=== PATIENT | female | born 1945 | race Caucasian/White ===

== ENCOUNTER 2020-07-25 14:54 | Outpatient (REF) | payer MEDICARE, SELFPAY | END 2020-07-25 14:55 | disposition home or self-care (01) | LOC: HO.LAB 14:54 | PROVIDERS: PCP Internal Medicine; Visit Provider Dermatology | DX: Z13.89 Encounter for screening for other disorder (principal) ==

== ENCOUNTER 2020-07-27 14:08 | Outpatient (REF) | payer MEDICARE, SELFPAY ==
[2020-07-27 14:53] LABS: MANUAL DIFF FLAG NO
[2020-07-27 15:00] LABS: Basophils Absolute Auto 0.1 X10*3/uL (0.0-0.2); Basophils Percent Auto 0.5 % (0-2); Eosinophils Absolute Auto 0.5 X10*3/uL (0.0-0.4); Eosinophils Percent Auto 4.1 % (0-4); Hematocrit 39.5 % (37-47); Hemoglobin 12.5 g/dl (12.0-16.0); Imm Gran Abs Auto 0.03 X10*3/uL (0.00-0.03); Imm Gran Pct Auto 0.3 % (0.0-0.4); Lymphocytes Absolute Auto 1.9 X10*3/uL (1.2-4.9); Lymphocytes Percent Auto 17.1 % (20-40); Mean Corpuscular HGB Conc 31.6 g/dl (31.0-35.0); Mean Corpuscular Hemoglobin 31.4 pg (27.0-33.0); Mean Corpuscular Volume 99.2 fL (80-98); Monocytes Percent Auto 8.9 % (2-11); Neutrophils Absolute Auto 7.6 X10*3/uL (2.0-8.3); Neutrophils Percent Auto 69.1 % (45-73); Platelet Count 200 X10*3/uL (160-400); Red Blood Count 3.98 X10*6/uL (4.20-5.50); Red Cell Distribution Width 13.9 % (11.0-16.0)
[2020-07-27 15:23] LABS: Alanine Aminotransferase 9 U/L (0-31); Albumin Level 4.2 g/dL (3.5-5.0); Alkaline Phosphatase 76 U/L (39-117); Anion Gap 15 (12-20); Aspartate Amino Transferase 14 U/L (5-31); Bilirubin Direct 0.2 mg/dL (0.0-0.5); Bilirubin Total 0.8 mg/dL (0.0-1.0); Blood Urea Nitrogen 20 mg/dL (9-16); Carbon Dioxide 23 mmol/L (22-29); Chloride 109 mmol/L (96-108); Estimated Glomerular Filt Rate 27; Glucose Random 159 mg/dL (60-115); Potassium 5.3 mmol/l (3.3-5.1); Sodium 142 mmol/L (135-145); Total Protein 7.7 g/dL (6.5-8.0)
== END 2020-07-27 14:09 | disposition home or self-care (01) ==
LOC: HO.LAB 14:08
PROVIDERS: PCP Internal Medicine; Visit Provider Dermatology
DX: L40.0 Psoriasis vulgaris (principal); Z79.899 Other long term (current) drug therapy; I40.0 Infective myocarditis
CPT/HCPCS: 36415; 80048; 80076; 85025; 86481

== ENCOUNTER 2021-01-08 14:27 | Outpatient (REF) | payer MEDICARE, SELFPAY ==
[2021-01-08 15:19] LABS: MANUAL DIFF FLAG NO
[2021-01-08 15:33] LABS: Basophils Percent Auto 0.5 % (0-2); Eosinophils Absolute Auto 0.5 X10*3/uL (0.0-0.4); Hemoglobin 12.9 g/dl (12.0-16.0); Imm Gran Abs Auto 0.06 X10*3/uL (0.00-0.03); Imm Gran Pct Auto 0.8 % (0.0-0.4); Lymphocytes Absolute Auto 1.2 X10*3/uL (1.2-4.9); Lymphocytes Percent Auto 16.5 % (20-40); Mean Corpuscular HGB Conc 32.3 g/dl (31.0-35.0); Mean Corpuscular Hemoglobin 32.3 pg (27.0-33.0); Mean Platelet Volume 9.9 fL (9.4-12.3); Monocytes Absolute Auto 0.6 X10*3/uL (0.1-1.2); Monocytes Percent Auto 8.3 % (2-11); Neutrophils Percent Auto 66.9 % (45-73); Platelet Count 191 X10*3/uL (160-400); Red Cell Distribution Width 14.6 % (11.0-16.0); White Blood Count 7.5 X10*3/uL (4.8-10.8)
[2021-01-08 15:53] LABS: Albumin Level 4.2 g/dL (3.5-5.0); Anion Gap 16 (12-20); Blood Urea Nitrogen 18 mg/dL (9-16); Calcium 9.3 mg/dL (8.4-10.2); Carbon Dioxide 19 mmol/L (22-29); Chloride 109 mmol/L (96-108); Estimated Glomerular Filt Rate 27; Magnesium 2.2 mg/dL (1.6-2.6); Phosphorus 3.8 mg/dL (2.7-4.5); Potassium 4.9 mmol/L (3.3-5.1); Sodium 139 mmol/L (135-145)
== END 2021-01-08 14:28 | disposition home or self-care (01) ==
LOC: HO.LAB 14:27
PROVIDERS: PCP Internal Medicine; Visit Provider Internal Medicine Hypertension Specialist
DX: I13.0 Hypertensive heart and chronic kidney disease with heart failure and stage 1 through stage 4 chronic kidney disease, or unspecified chronic kidney disease (principal); N18.30 Chronic kidney disease, stage 3 unspecified
CPT/HCPCS: 36415; 80051; 82040; 82310; 82565; 83735; 84100; 84520; 85025

== ENCOUNTER 2021-08-28 11:56 | Outpatient (REF) | payer MEDICARE, SELFPAY ==
[2021-08-28 12:18] LABS: MANUAL DIFF FLAG NO
[2021-08-28 13:21] LABS: Basophils Absolute Auto 0.1 X10*3/uL (0.0-0.2); Basophils Percent Auto 0.6 % (0-2); Eosinophils Absolute Auto 0.4 X10*3/uL (0.0-0.4); Eosinophils Percent Auto 4.9 % (0-4); Hematocrit 40.3 % (37.0-47.0); Hemoglobin 13.2 g/dl (12.0-16.0); Imm Gran Abs Auto 0.03 X10*3/uL (0.00-0.03); Imm Gran Pct Auto 0.4 % (0.0-0.4); Lymphocytes Absolute Auto 1.2 X10*3/uL (1.2-4.9); Lymphocytes Percent Auto 14.5 % (20-40); Mean Corpuscular HGB Conc 32.8 g/dl (31.0-35.0); Mean Corpuscular Volume 100.8 fL (80.0-98.0); Mean Platelet Volume 11.1 fL (9.4-12.3); Monocytes Absolute Auto 0.7 X10*3/uL (0.1-1.2); Monocytes Percent Auto 9.2 % (2-11); Neutrophils Absolute Auto 5.6 x10*3/uL (2.0-8.3); Neutrophils Percent Auto 70.4 % (45-73); Platelet Count 134 X10*3/uL (160-400); Red Cell Distribution Width 14.5 % (11.0-16.0); White Blood Count 7.9 X10*3/uL (4.8-10.8)
[2021-08-28 14:28] LABS: Alanine Aminotransferase 20 U/L (0-31); Albumin Level 3.9 g/dL (3.5-5.0); Alkaline Phosphatase 82 U/L (39-117); Anion Gap 16 (12-20); Aspartate Amino Transferase 29 U/L (5-31); Bilirubin Direct 0.3 mg/dL (0.0-0.5); Bilirubin Total 0.9 mg/dL (0.0-1.0); Blood Urea Nitrogen 14 mg/dL (9-16); Calcium 9.4 mg/dL (8.4-10.2); Carbon Dioxide 18 mmol/L (22-29); Chloride 109 mmol/L (96-108); Estimated Glomerular Filt Rate 31; Glucose Random 92 mg/dL (60-115); Potassium 4.2 mmol/L (3.3-5.1); Sodium 139 mmol/L (135-145); Total Protein 7.7 g/dL (6.5-8.0)
[2021-08-30 19:51] LABS: TS Negative Control Passed; TS Panel A 0; TS Panel B 0; TS Positive Control Passed; TSpotTB Negative (Negative)
== END 2021-08-28 11:57 | disposition home or self-care (01) ==
LOC: HO.LAB 11:56
PROVIDERS: PCP Internal Medicine; Visit Provider Dermatology
DX: L40.0 Psoriasis vulgaris (principal)
CPT/HCPCS: 36415; 80048; 80076; 85025; 86481

== ENCOUNTER 2021-11-08 10:07 | Outpatient (REF) | payer MEDICARE, SELFPAY ==
[2021-11-08 13:21] LABS: MANUAL DIFF FLAG NO
[2021-11-08 13:25] LABS: Basophils Percent Auto 0.4 % (0-2); Eosinophils Absolute Auto 0.4 X10*3/uL (0.0-0.4); Eosinophils Percent Auto 5.9 % (0-4); Hematocrit 41.1 % (37.0-47.0); Hemoglobin 13.4 g/dl (12.0-16.0); Imm Gran Abs Auto 0.02 X10*3/uL (0.00-0.03); Imm Gran Pct Auto 0.3 % (0.0-0.4); Lymphocytes Absolute Auto 1.4 X10*3/uL (1.2-4.9); Lymphocytes Percent Auto 19.6 % (20-40); Mean Corpuscular HGB Conc 32.6 g/dl (31.0-35.0); Mean Corpuscular Hemoglobin 33.1 pg (27.0-33.0); Mean Corpuscular Volume 101.5 fL (80.0-98.0); Mean Platelet Volume 10.2 fL (9.4-12.3); Monocytes Absolute Auto 0.7 X10*3/uL (0.1-1.2); Monocytes Percent Auto 10.1 % (2-11); Neutrophils Absolute Auto 4.6 x10*3/uL (2.0-8.3); Neutrophils Percent Auto 63.7 % (45-73); Platelet Count 164 X10*3/uL (160-400); Red Blood Count 4.05 X10*6/uL (4.20-5.50); Red Cell Distribution Width 13.5 % (11.0-16.0); White Blood Count 7.3 X10*3/uL (4.8-10.8)
[2021-11-08 14:00] LABS: Alanine Aminotransferase 15 U/L (0-31); Albumin Level 3.7 g/dL (3.5-5.0); Alkaline Phosphatase 68 U/L (39-117); Anion Gap 14 (12-20); Aspartate Amino Transferase 24 U/L (5-31); Bilirubin Total 0.6 mg/dL (0.0-1.0); Blood Urea Nitrogen 15 mg/dL (9-16); Calcium 9.4 mg/dL (8.4-10.2); Carbon Dioxide 23 mmol/L (22-29); Chloride 108 mmol/L (96-108); Cholesterol 204 mg/dL; Estimated Average Glucose 108 mg/dL; Estimated Glomerular Filt Rate 27; Glucose Fasting 131 mg/dL (60-99); HDL Cholesterol 95 mg/dL; Hemoglobin A1c % 5.4 %; Iron 102 mcg/dL (30-160); LDL Cholesterol Calculated 90 mg/dl; Percent Iron Saturation 40 % (15-50); Potassium 4.1 mmol/L (3.3-5.1); Sodium 141 mmol/L (135-145); Total Iron Binding Capacity 254 mcg/dL (228-428); Total Protein 7.7 g/dL (6.5-8.0); Triglycerides 97 mg/dL; Unsaturated Iron Binding 152 ug/dL
[2021-11-08 14:09] LABS: Erythrocyte Sedimentation Rate 25 MM/HR (0-20)
[2021-11-08 14:19] LABS: TSH reflex Free T4 1.68 uIU/mL (0.32-4.0); Vitamin D 25-OH Total 30.6 ng/mL (>30)
[2021-11-08 14:44] LABS: Folate 4.3 ng/mL (> or = 4.0); Vitamin B12 324 pg/mL (200-900)
== END 2021-11-08 10:08 | disposition home or self-care (01) ==
LOC: HO.10HDL 10:07
PROVIDERS: Visit Provider Internal Medicine
DX: E78.00 Pure hypercholesterolemia, unspecified (principal); E87.5 Hyperkalemia; D50.9 Iron deficiency anemia, unspecified; E55.9 Vitamin D deficiency, unspecified; L40.9 Psoriasis, unspecified; R29.898 Other symptoms and signs involving the musculoskeletal system; E11.22 Type 2 diabetes mellitus with diabetic chronic kidney disease; I12.9 Hypertensive chronic kidney disease with stage 1 through stage 4 chronic kidney disease, or unspecified chronic kidney disease; E78.5 Hyperlipidemia, unspecified; N18.4 Chronic kidney disease, stage 4 (severe)
CPT/HCPCS: 36415; 80053; 80061; 82306; 82550; 82607; 82746; 83036; 83540; 83735; 84443; 85025; 85652

== ENCOUNTER 2023-02-18 13:45 | Outpatient (REF) | payer MEDICARE, SELFPAY ==
[2023-02-18 14:16] LABS: MANUAL DIFF FLAG NO
[2023-02-18 15:11] LABS: Basophils Absolute Auto 0.1 X10*3/uL (0.0-0.2); Basophils Percent Auto 0.9 % (0-2); Eosinophils Absolute Auto 0.6 X10*3/uL (0.0-0.4); Eosinophils Percent Auto 7.4 % (0-4); Hematocrit 39.1 % (37.0-47.0); Hemoglobin 12.8 g/dl (12.0-16.0); Imm Gran Abs Auto 0.03 X10*3/uL (0.00-0.03); Imm Gran Pct Auto 0.4 % (0.0-0.4); Lymphocytes Absolute Auto 1.5 X10*3/uL (1.2-4.9); Lymphocytes Percent Auto 17.9 % (20-40); Mean Corpuscular HGB Conc 32.7 g/dl (31.0-35.0); Mean Corpuscular Hemoglobin 32.9 pg (27.0-33.0); Mean Corpuscular Volume 100.5 fL (80.0-98.0); Mean Platelet Volume 9.5 fL (9.4-12.3); Monocytes Absolute Auto 0.6 X10*3/uL (0.1-1.2); Monocytes Percent Auto 7.5 % (2-11); Neutrophils Absolute Auto 5.4 x10*3/uL (2.0-8.3); Neutrophils Percent Auto 65.9 % (45-73); Platelet Count 230 X10*3/uL (160-400); Red Blood Count 3.89 X10*6/uL (4.20-5.50); Red Cell Distribution Width 14.3 % (11.0-16.0); White Blood Count 8.2 X10*3/uL (4.8-10.8)
[2023-02-18 15:27] LABS: Estimated Average Glucose 100 mg/dL; Hemoglobin A1c % 5.1 %
[2023-02-18 15:46] LABS: Alanine Aminotransferase 9 U/L (0-31); Albumin Level 3.9 g/dL (3.5-5.0); Alkaline Phosphatase 85 U/L (39-117); Anion Gap 13 (12-20); Aspartate Amino Transferase 17 U/L (5-31); Bilirubin Total 0.9 mg/dL (0.0-1.0); Blood Urea Nitrogen 19 mg/dL (9-16); Calcium 9.4 mg/dL (8.4-10.2); Carbon Dioxide 18 mmol/L (22-29); Chloride 111 mmol/L (96-108); Cholesterol 201 mg/dL; Estimated Glomerular Filt Rate 29; Glucose Fasting 121 mg/dL (60-99); HDL Cholesterol 81 mg/dL; LDL Cholesterol Calculated 92 mg/dl; Potassium 5.2 mmol/L (3.3-5.1); Sodium 137 mmol/L (135-145); Total Protein 7.9 g/dL (6.5-8.0); Triglycerides 142 mg/dL
[2023-02-18 16:18] LABS: Folate 6.2 ng/mL (> or = 4.0); TSH reflex Free T4 2.02 uIU/mL (0.32-4.0); Vitamin B12 317 pg/mL (200-900); Vitamin D 25-OH Total 35.8 ng/mL (>30)
[2023-02-18 16:37] LABS: Appearance Urine Cloudy; Color Urine Yellow; Glucose Urine UA Negative (Negative); Leukocyte Esterase Urine Large (3+) (Negative); Nitrite Urine Negative (Negative); UMIC TRIGGER UACC YES; Urine Blood Negative (Negative); Urine Ketones Negative (Negative); Urine Protein 30 (1+) mg/dL (Neg-Trace)
[2023-02-18 16:46] LABS: Bacteria Urine Trace (None Seen); UACC Culture Trigger YES; WBC Urine >50 /HPF (0-5)
== END 2023-02-18 13:46 | disposition home or self-care (01) ==
LOC: HO.LAB 13:45
PROVIDERS: PCP Internal Medicine; Visit Provider Internal Medicine
DX: I12.9 Hypertensive chronic kidney disease with stage 1 through stage 4 chronic kidney disease, or unspecified chronic kidney disease (principal); E11.22 Type 2 diabetes mellitus with diabetic chronic kidney disease; N18.4 Chronic kidney disease, stage 4 (severe); E78.00 Pure hypercholesterolemia, unspecified; E55.9 Vitamin D deficiency, unspecified; E53.8 Deficiency of other specified B group vitamins; R82.90 Unspecified abnormal findings in urine
CPT/HCPCS: 36415; 80053; 80061; 81001; 82306; 82607; 82746; 83036; 83735; 84443; 85025; 87086; 87147

== ENCOUNTER 2023-04-08 15:01 | Outpatient (REF) | payer MEDICARE, SELFPAY ==
[2023-04-10 16:23] LABS: TS Negative Control Passed; TS Panel A 0; TS Panel B 0; TS Positive Control Passed; TSpotTB Negative (Negative)
== END 2023-04-08 15:02 | disposition home or self-care (01) ==
LOC: HO.LAB 15:01
PROVIDERS: PCP Internal Medicine; Visit Provider Dermatology
DX: L40.0 Psoriasis vulgaris (principal); D69.2 Other nonthrombocytopenic purpura; L81.4 Other melanin hyperpigmentation; Z79.899 Other long term (current) drug therapy
CPT/HCPCS: 36415; 86481

== ENCOUNTER 2023-05-28 10:25 | Outpatient (REF) | payer MEDICARE, SELFPAY ==
--- NOTE | 2023-05-28 10:30 | EMG_ITS ---
Please see scanned EMG / Nerve Conduction Report. MTDD
== END 2023-05-28 10:26 | disposition home or self-care (01) ==
LOC: HO.NEURO 10:25
PROVIDERS: PCP Internal Medicine; Visit Provider Internal Medicine
DX: R26.81 Unsteadiness on feet (principal); R29.898 Other symptoms and signs involving the musculoskeletal system
CPT/HCPCS: 95885; 95911

== ENCOUNTER 2023-08-12 15:36 | Outpatient (AMB) | payer MEDICARE, SELFPAY ==
[2023-08-12 15:38] VITALS: BP 112/80; PULSE 81; O2SAT 99; BMI 19.1
--- NOTE | 2023-08-12 15:38 | A.OFFPC_ITS ---
Vital Signs 08/12/23 15:38 Height 5 ft 1 in Weight 101 lb 4 oz BMI 19.1 BP 112/80 Blood Pressure Location Lt brachial Position Sitting Pulse 81 Pulse Source Pulse Oximeter Pulse Oximetry (%) 99 Oxygen Delivery Method Room Air Intake Visit Reasons: HTN, DM, CKD, neuropathy Data Reviewer Required: No Accompanied by: Self / Same As Patient Allergies Sulfa (Sulfonamide Antibiotics) Allergy (Unknown, Verified 07/14/24 04:22) Unknown Medication List - Last Reconciled 08/12/23 by Abdoulaye Cunha MD amlodipine 5 mg PO DAILY ergocalciferol (vitamin D2) 1,250 mcg PO QWEEK 90 days glipizide ER 2.5 mg PO DAILY Tobacco use date assessed: 08/12/23 Fall risk assessment: 1 Fall in past year Last assessed Fall Risk: 08/12/23 Dental Screening Dental Screen Date: 08/12/23 Did you have a dental visit in the last 12 months?: No Did you have a dental problem in the last 6 months where you did not have access to dental care?: No Was dental information given to patient?: No HPI HTN, DM, CKD, neuropathy HPI Details Patient comes in today for her follow up visit States that she still has increased weakness in both of her legs PFSH Medical History Bilateral leg weakness Hyperkalemia Psoriasis Chronic kidney disease, stage 4 (severe) Anemia Pure hypercholesterolemia Benign essential hypertension Diabetes mellitus Vitamin D deficiency Surgical History S/P peripheral artery angioplasty with stent placement (~11/21/17) Social History Housing: House Unable to assess alcohol history related to: Unable to respond Alcohol intake: former Patient Tobacco Use Status: Former Tobacco user Smoked in Last 30 Days: No Second Hand Smoke Exposure: Yes Use of substances other than those prescribed or required for medical reasons: Unable to respond Advance Directives: No service: No Current occupational status: retired and disabled Cognitive needs: No Hearing needs: No Vision needs: No Questionnaire PHQ-9 Over the last 2 weeks, how often have you been bothered by any of the following problems? 1. Little interest or pleasure in doing things: not at all 2. Feeling down, depressed, or hopeless: not at all 3. Trouble falling or staying asleep, or sleeping too much: not at all 4. Feeling tired or having little energy: several days 5. Poor appetite or overeating: not at all 6. Feeling bad about yourself - or that you are a failure or have let yourself or your family down: not at all 7. Trouble concentrating on things, such as reading the newspaper or watching television: not at all 8. Moving or speaking so slowly that other people could have noticed. Or the opposite - being so fidgety or restless that you have been moving around a lot more than usual: not at all 9. Thoughts that you would be better off or of hurting yourself in some way: not at all Total score: 1 Depression Screening Interpretation: Negative Depression Screening Done: Yes 27437 - PHQ-9 Billing: Yes Source: Developed by Drs. Vaibhav Quick, Kristy Sidhu, Jt Walters and colleagues, with an educational mera from [employer]. Thrive Questionnaire Date Thrive assessed: 08/12/23 I am a: Patient What is your living situation today?: I have a steady place to live Within the past 12 months, did the food you bought not last and you didn't have the money to get more?: Never true Within the past 12 months, did you worry whether your food would run out before you got money to buy more?: Never true Do you have trouble paying for medicines?: No Do you have trouble getting transportation to medical appointments?: No Do you have trouble paying your heating and electricity bill?: No Do you have trouble taking care of your child, family member or friend?: No Do you have trouble with day-to-day activities such as bathing, preparing meals, shopping, managing finances, etc.?: No Are you currently unemployed and looking for a job?: No Are you interested in more education?: No Please select the resources that you would like help with: None Currently or been in a relationship where the following occur: no concerns reported AUDIT C Alcohol Use Questionnaire (AUDIT-C) 1. How often do you have a drink containing alcohol?: Never 3. How often do you have six or more drinks on one occasion?: Never Total Score: 0 Score Reviewed/Action Taken: Yes MARC-7 AMB Questionnaire MARC-7 Date MARC - 7 assessed: 08/12/23 Feeling nervous, anxious, or on edge: 0 = Not at all Not being able to stop or control worryin = Not at all Worrying too much about different things: 0 = Not at all Trouble relaxin = Not at all Being so restless that it is hard to sit still: 0 = Not at all Becoming easily annoyed or irritable: 0 = Not at all Feeling afraid as if something awful might happen: 0 = Not at all Total MARC-7 score (0-4 normal; 5-9 mild; 10-14 moderate; 15-21 severe): 0 Source: Developed by Drs. Vaibhav Quick, Kristy Sidhu, Jt Walters and colleagues, with an educational mera from [employer]. Physical exam (Primary Care) Vital Signs: Last Vital Signs Pulse 81 08/12/23 15:38 BP 112/80 08/12/23 15:38 Pulse Ox 99 08/12/23 15:38 Oxygen Delivery Method Room Air 08/12/23 15:38 BMI result Body Mass Index 19.1 Tobacco/Smoking Status: Tobacco use Status Tobacco use date assessed 08/12/23 08/12/23 15:40 Patient Tobacco Use Status Former Tobacco user 08/12/23 15:40 PHQ-9: PHQ-9 Score PHQ-9: Total score 1 08/13/23 09:08 Depression Screening Interpretation: Negative Thrive Assessment: Date of Thrive Assessment Date Thrive assessed 08/12/23 08/12/23 15:40 Currently or been in a relationship where the following occur: no concerns reported Coding Level of Care Code Admin Sign Off/No Billing Diagnoses Bilateral leg weakness R29.898 Chronic kidney disease, stage 4 (severe) N18.4 Weakness of both lower extremities R29.898 Laterality: bilateral Type 2 diabetes mellitus with stage 4 chronic kidney disease, without long-term current use of insulin E11.22; N18.4 Chronic kidney disease stage: stage 4 (severe) Diabetes mellitus complication detail: with chronic kidney disease Diabetes mellitus complication status: with kidney complications Diabetes mellitus penitentiary insulin use: without penitentiary use Diabetes mellitus type: type 2 Benign essential hypertension I10 Pure hypercholesterolemia E78.00 Anemia, unspecified type D64.9 Anemia type: unspecified type Vitamin D deficiency E55.9 Psoriasis L40.9
== END 2023-08-12 16:11 | disposition home or self-care (01) ==
PROVIDERS: Visit Provider Internal Medicine
DX: E11.22 Type 2 diabetes mellitus with diabetic chronic kidney disease (principal); N18.4 Chronic kidney disease, stage 4 (severe); I12.9 Hypertensive chronic kidney disease with stage 1 through stage 4 chronic kidney disease, or unspecified chronic kidney disease; R29.898 Other symptoms and signs involving the musculoskeletal system; E78.00 Pure hypercholesterolemia, unspecified; D64.9 Anemia, unspecified; E55.9 Vitamin D deficiency, unspecified; L40.9 Psoriasis, unspecified
CPT/HCPCS: 99499

== ENCOUNTER 2023-08-29 15:26 | Outpatient (AMB) | payer MEDICARE, SELFPAY ==
--- NOTE | 2023-08-29 15:27 | HO.NEPHOV ---
HPI HPI Comments History of Present Illness Details I had the privilege to seeing Birgit in consultation for her chronic kidney disease. She was accompanied by her daughter. She has diabetes and hypertension. She denies any coronary artery disease, nephrolithiasis, congestive heart failure, carotid stenosis, CVA, CHF, PAD or JESSICA. She has no new skin rashes, photosensitivity, hematuria, bone pain, orthostatic symptoms. She does not take excessive nonsteroidal anti-inflammatory medications. She has no nausea, vomiting, diarrhea or pedal edema. She has not had blood work for some time. No and no new active complaints at the time of this office visit. [facility] Medical History (Updated 08/29/23 @ 16:12 by Hank Awan MD) Bilateral leg weakness Hyperkalemia Psoriasis Chronic kidney disease, stage 4 (severe) Anemia Pure hypercholesterolemia Benign essential hypertension Diabetes mellitus Vitamin D deficiency Surgical History S/P peripheral artery angioplasty with stent placement (~11/21/17) Social History Housing: House Alcohol intake: former Patient Tobacco Use Status: Former Tobacco user Second Hand Smoke Exposure: Yes service: No Current occupational status: retired and disabled Cognitive needs: No Hearing needs: No Vision needs: No Vital Signs 08/29/23 15:28 Height 5 ft 1 in Weight 104 lb 4 oz BMI 19.7 BP 100/70 Blood Pressure Location Lt brachial Position Sitting Pulse 66 Pulse Source Pulse Oximeter Physical Exam Vital Signs: Last Vital Signs Pulse 66 08/29/23 15:28 BP 100/70 08/29/23 15:28 BMI result Body Mass Index 19.7 Const General: comfortable and no acute distress Orientation/consciousness: patient oriented x3 HEENT Head: Yes normocephalic Mouth: Normal oral and palatal mucosa present Eyes EOM: EOMs intact bilaterally Neck Neck: Yes supple Resp Auscultation: clear to auscultation bilaterally Cardio Jugular venous distension: no JVD Rate: regular rate GI Palpation (GI): Soft to palpation Auscultation: normal bowel sounds General: Yes no CVA tenderness Back/Spine/Pelvis Back: no CVA tenderness Skin General skin exam: no rashes or lesions noted Neuro General: patient oriented x3 and moves all extremities Extrem General: Yes no pedal edema Assessment & Plan Assessment & Plan (1) CKD (chronic kidney disease) stage 3, GFR 30-59 ml/min: Code(s): N18.30 - Chronic kidney disease, stage 3 unspecified Qualifiers: Chronic kidney disease stage 3 subtype: stage 3b (GFR 30-44) Qualified Code(s): N18.32 - Chronic kidney disease, stage 3b (2) Benign essential hypertension: Code(s): I10 - Essential (primary) hypertension Plan Birgit has had chronic kidney disease likely from vascular disease. She has diabetes and hypertension. She is not on any JULIA inhibitor or ARB. Her blood pressure is at goal. She does not take any excessive nonsteroidal anti-inflammatory medications. She maintains good hydration. I have ordered imaging studies along with blood work and urine studies. I did not make any medication changes today. Further management has been evolving data. She will be a candidate for [facility]. All questions answered. Follow-up given. Orders: Orders Complete Blood Count Auto Diff 08/29/23 N18.30 - Chronic kidney disease, stage 3 unspecified Blood Urea Nitrogen 08/29/23 N18.30 - Chronic kidney disease, stage 3 unspecified Vitamin D 25-OH Total 08/29/23 N18.30 - Chronic kidney disease, stage 3 unspecified Phosphorus 08/29/23 N18.30 - Chronic kidney disease, stage 3 unspecified Electrolytes 08/29/23 N18.30 - Chronic kidney disease, stage 3 unspecified Creatinine 08/29/23 N18.30 - Chronic kidney disease, stage 3 unspecified Calcium 08/29/23 N18.30 - Chronic kidney disease, stage 3 unspecified Parathyroid Hormone Intact 08/29/23 N18.30 - Chronic kidney disease, stage 3 unspecified Immunofixation Pnl, Serum 08/29/23 N18.30 - Chronic kidney disease, stage 3 unspecified US renal BI 08/29/23 N18.30 - Chronic kidney disease, stage 3 unspecified Protein Creatinine Ratio, Ur 08/29/23 N18.30 - Chronic kidney disease, stage 3 unspecified UA and rflx microscopic 08/29/23 N18.30 - Chronic kidney disease, stage 3 unspecified Coding Level of Care Code New Pt Level 4 (54743) Diagnoses Stage 3b chronic kidney disease N18.32 Chronic kidney disease stage 3 subtype: stage 3b (GFR 30-44) Benign essential hypertension I10 Results Reviewed Nephrology Results: Hgb 12.8 g/dl (12.0-16.0) 02/18/23 WBC 8.2 X10*3/uL (4.8-10.8) 02/18/23 Plt Count 230 X10*3/uL (160-400) 02/18/23 Sodium 137 mmol/L (135-145) 02/18/23 Potassium 5.2 mmol/L (3.3-5.1) H 02/18/23 Chloride 111 mmol/L (96-108) H 02/18/23 Carbon Dioxide 18 mmol/L (22-29) L 02/18/23 BUN 19 mg/dL (9-16) H 02/18/23 Creatinine 1.69 mg/dL (0.5-1.4) H 02/18/23 Calcium 9.4 mg/dL (8.4-10.2) 02/18/23 Urine Protein 30 (1+) mg/dL (Neg-Trace) H 02/18/23
[2023-08-29 15:28] VITALS: BP 100/70; PULSE 66; BMI 19.7
== END 2023-08-29 16:15 | disposition home or self-care (01) ==
LOC: HO.HKA 15:26
PROVIDERS: PCP Internal Medicine; Visit Provider Internal Medicine Nephrology
DX: N18.32 Chronic kidney disease, stage 3b (principal); I10 Essential (primary) hypertension
CPT/HCPCS: 99204

== ENCOUNTER → 2023-08-29 15:26 | Outpatient (BNVA) | payer MEDICARE, SELFPAY | PROVIDERS: PCP Internal Medicine; Visit Provider Internal Medicine Nephrology | DX: I12.9 Hypertensive chronic kidney disease with stage 1 through stage 4 chronic kidney disease, or unspecified chronic kidney disease (principal); N18.32 Chronic kidney disease, stage 3b | CPT/HCPCS: 99202 ==

== ENCOUNTER 2023-09-26 16:27 | Outpatient (REF) | payer MEDICARE, SELFPAY ==
--- NOTE | ~2023-09-26 | US_ITS ---
EXAMINATION: US RETROPERITONEAL LIMITED (RENAL ONLY) CLINICAL INFORMATION: Chronic kidney disease, stage 3 unspecified. COMPARISON: Renal ultrasound 01/13/2019 and 10/22/2017. TECHNIQUE: Real-time imaging of the kidneys. Limited visualization due to bowel gas. FINDINGS: RIGHT KIDNEY: 7.7 x 3.6 x 3.8 cm (SAG x AP x TRV). No hydronephrosis. No renal calculi. Limited visualization. A 1.7 x 1.2 x 1.4 cm possible mid pole cortical mass versus hypertrophied column of Tyron. Dedicated CT scan employing renal mass protocol with images obtained both prior to and following intravenous contrast recommended. LEFT KIDNEY: 8.0 x 3.7 x 3.8 cm (SAG x AP x TRV). No hydronephrosis. Limited visualization. Scattered tiny echogenic foci may represent artifact, although vascular calcifications or tiny renal calculi could also have this appearance. US/US renal BI IMPRESSION: 1. A 1.7 cm possible right renal midpole cortical mass versus hypertrophied column of Tyron. Dedicated CT scan employing renal mass protocol with images obtained both prior to and following intravenous contrast recommended. 2. Scattered tiny echogenic foci may represent artifact, although vascular calcifications or tiny renal calculi could also have this appearance.
== END 2023-09-26 16:28 | disposition home or self-care (01) ==
LOC: HO.US 16:27
PROVIDERS: PCP Internal Medicine; Visit Provider Internal Medicine Nephrology
DX: N18.30 Chronic kidney disease, stage 3 unspecified (principal)
CPT/HCPCS: 76775

== ENCOUNTER 2023-11-07 17:24 | Outpatient (REF) | payer MEDICARE, SELFPAY ==
--- NOTE | ~2023-11-07 | MR_ITS ---
EXAMINATION: MR LUMBAR SPINE WITHOUT CONTRAST CLINICAL INFORMATION: Radiculopathy COMPARISON: None available. TECHNIQUE: MRI of the lumbar spine was obtained using routine sequences without the administration of intravenous contrast. FINDINGS: This examination assumes the presence of 5 lumbar type vertebral bodies. For the purposes of this examination, the L5-S1 intervertebral disc space is visualized on axial series 6 image 32. Focal kyphosis at the thoracolumbar junction secondary to a chronic compression deformity of the T12 vertebral body with near complete intervertebral disc space height loss. The lumbar lordosis is preserved. Additional chronic inferior endplate compression deformity of L3 with up to 33% central vertebral body height loss. There is partially visualized edema along the left S2 and S3 vertebral bodies and questionably right S3 vertebral body. There is likely fusion of the sacroiliac joints. The conus medullaris is normal in signal intensity and terminates at the level of L2. The cauda equina nerve roots within normal limits. T11-T12: Bony retropulsion of the T12 superior endplate indents the ventral thecal sac with mild canal stenosis. Mild narrowing of the neural foramen. T12-L1: No significant spinal canal or neural foraminal stenosis. Trace disc bulge. L1-L2: No significant spinal canal or neural foraminal stenosis. L2-L3: No significant spinal canal or neural foraminal stenosis. L3-L4: Mild retropulsion of the inferior endplate. Disc bulge and osteophytic ridging with facet arthropathy. The spinal canal is not significantly narrowed. Mild narrowing of the neural foramen. L4-L5: Disc bulge and osteophytic ridging with facet arthropathy and ligamentum flavum redundancy. Left greater than right facet joint effusions. The spinal canal has mild narrowing of the lateral recesses without significant central canal stenosis. Minimal narrowing of the right neural foramen. L5-S1: Disc bulge and osteophytic ridging with central disc protrusion that indents the ventral thecal sac and is in close approximation to the descending S1 nerve roots. Facet arthropathy. The central canal is otherwise patent. There is mild to moderate narrowing of the neural foramen. Partially visualized renal hernia. Bilateral renal atrophy. T2 hyperintense foci in the right kidney are incompletely characterized on this examination but may represent cysts. MR/MR lumbar spine wo con IMPRESSION: Partially visualized edema in the left greater than right sacrum which is nonspecific but in the appropriate clinical setting may indicate an underlying insufficiency fracture. Clinical correlation/correlation with dedicated sacral imaging is recommended. Multilevel degenerative changes as described above. There is mild to moderate narrowing of the bilateral neural foramen at L5-S1. No high-grade spinal canal or neural foraminal stenosis. Chronic compression deformity of T12 with near complete vertebral body height loss and bony retropulsion of the T12 superior endplate. Associated focal kyphotic deformity. Chronic inferior endplate deformity of L3.
== END 2023-11-07 17:25 | disposition home or self-care (01) ==
LOC: HO.MRI 17:24
PROVIDERS: PCP Internal Medicine; Visit Provider Internal Medicine
DX: M51.16 Intervertebral disc disorders with radiculopathy, lumbar region (principal); R29.898 Other symptoms and signs involving the musculoskeletal system
CPT/HCPCS: 72148

== ENCOUNTER 2024-05-28 19:00 | Emergency (ER) | payer MEDICARE, SELFPAY ==
--- NOTE | ~2024-05-28 | XR_ITS ---
EXAMINATION: XR CHEST 2 VIEWS CLINICAL INFORMATION: Cough. COMPARISON: Radiographs dated 01/04/2011 and 01/16/2010 (reports only). TECHNIQUE: Frontal and lateral views of the chest were obtained. FINDINGS: The heart, great vessels, pulmonary vasculature and mediastinum are normal. There is a small patchy infiltrate in the lateral mid right lung. There are very small bilateral pleural effusions. A moderate hiatus hernia seen, with air-fluid level. There are upper abdominal surgical clips. There are diffuse abdominal aortic atherosclerotic calcifications. A mild T9 wedge compression fracture is seen. There is a marked T12 fracture, with vertebra plana appearance. This is stable from the MRI lumbar spine dated 11/07/2023. XR/XR chest 2V IMPRESSION: 1. There is a small patchy infiltrate in the lateral mid right lung. 2. There are very small bilateral pleural effusions. 3. A moderate hiatus hernia seen. 3. There is a mild T9 wedge compression fracture, and a marked T12 compression fracture is seen. Electronically signed by: Rodney Mena MD 05/28/2024 10:20 PM EDT
[2024-05-28 19:18] VITALS: BP 121/70; PULSE 80; RESP 14; TEMP 35.9; O2SAT 100; BMI 19.6
--- NOTE | 2024-05-28 19:20 | ED_ITS ---
HPI - General Adult General Chief complaint: Failure to Thrive Stated complaint: multiple issues Time Seen by Provider: 05/28/24 21:49 Source: patient, family (daughters), RN notes reviewed and old records reviewed Mode of arrival: ambulatory Limitations: no limitations History of Present Illness ED Provider: Tate HPI narrative: 78-year-old female with past medical history significant for chronic kidney disease, hypertension, diabetes, gait instability, bilateral leg weakness presents for evaluation of multiple complaints including shortness of breath on exertion. The patient's chief complaint appears to be shortness of breath on exertion that has been worsening for the last 5 or 6 months. She does complain of bilateral leg weakness which she does have a diagnosed history of. She complains of chronic back pain She denies any recent falls but reports that she has been furniture surfing to get around the house to prevent falls. The patient denies any chest pain but again, her chief complaint is shortness of breath while walking. Denies any leg swelling Denies any fevers, chills, cough She has chronic pain to both of her feet but denies any rashes, has not had any falls or injury Related Data Previous Rx's ?Medication ?Instructions ?Recorded amlodipine 5 mg tablet 5 mg PO DAILY #90 tabs 10/01/23 ergocalciferol (vitamin D2) 1,250 1,250 mcg PO QWEEK 90 days #13 caps 10/01/23 mcg (50,000 unit) capsule glipizide 2.5 mg tablet, extended 2.5 mg PO DAILY #90 tabs 03/31/24 release 24 hr furosemide 20 mg tablet (Lasix) 20 mg PO DAILY #7 tabs 05/28/24 Allergies Allergy/AdvReac Type Severity Reaction Status Date / Time Sulfa (Sulfonamide Allergy Unknown Unknown Verified 05/28/24 19:22 Antibiotics) Review of Systems 2 Constitutional: Constitutional: Denies body ache(s), Denies chills, Denies fever(s), Denies frequent falls and Reports weakness (legs) Eyes: Eyes: Denies blurry vision ENT: Denies Normal hearing present, Denies vertigo and Denies dizziness Cardiovascular: Cardiovascular: Denies chest pain and Reports dyspnea on exertion Respiratory: Respiratory: Denies change in phlegm color, Denies chest congestion, Denies cough and Reports dyspnea on exertion Gastrointestinal: Gastrointestinal: Denies abdominal pain, Denies nausea and Denies vomiting Genitourinary: Genitourinary: Denies dysuria Musculoskeletal: Musculoskeletal: Denies back pain, Denies numbness and Denies tingling Integumentary/Breasts: Skin/Breast: Denies rash Neurologic: Denies Normal hearing present, Denies Neuro-related abnormal movements, Denies Abnormal speech present, Denies vertigo, Denies dizziness, Denies frequent falls, Reports lack of coordination, Denies numbness, Denies restless legs, Denies tingling and Reports weakness (legs) [facility] Past Medical History Medical History (Updated 05/28/24 @ 23:31 by Lv Ybarra) Bilateral leg weakness Hyperkalemia Psoriasis Chronic kidney disease, stage 4 (severe) Anemia Pure hypercholesterolemia Benign essential hypertension Diabetes mellitus Vitamin D deficiency Surgical History S/P peripheral artery angioplasty with stent placement (~11/21/17) Social History Social History Housing: House Alcohol intake: former Patient Tobacco Use Status: Former Tobacco user Smoked in Last 30 Days: No Second Hand Smoke Exposure: Yes Use of substances other than those prescribed or required for medical reasons: No Advance Directives: No Advance Directives Information Provided: No service: No Current occupational status: retired and disabled Cognitive needs: No Hearing needs: No Vision needs: No Physical Exam ED Vital Signs: Vital Signs - 24 hr 05/28/24 19:18 05/28/24 20:23 05/28/24 20:28 Temperature 96.6 F L 97.9 F Pulse Rate 80 74 Respiratory Rate 14 16 Blood Pressure 121/70 125/67 Pulse Oximetry 100 100 98 Oxygen Delivery Method Room Air Room Air Room Air 05/28/24 22:36 Temperature 98.2 F Pulse Rate 75 Respiratory Rate 18 Blood Pressure 144/77 H Pulse Oximetry 94 Oxygen Delivery Method Room Air BMI result Body Mass Index 19.6 Const General: healthy appearing, comfortable, no acute distress, alert and awake Nutritional Appearance: thin Orientation/consciousness: patient oriented x3 HENMT Head: Yes normocephalic and Yes atraumatic Eyes Eyelids: Yes eyelids normal Conjunctivae: conjunctivae normal Sclerae: sclerae normal Corneas: corneas normal Pupils: Equal, round and reactive pupils present EOM: EOMs intact bilaterally Neck Neck: Yes full ROM Resp Effort & Inspection: normal respiratory effort, able to speak in complete sentences, no audible wheezes and not labored Auscultation: clear to auscultation bilaterally, no rales, no rhonchi and no wheezes Cardio Other: No lower extremity edema Rate: regular rate Rhythm: regular rhythm GI Inspection: No distended Palpation (GI): Soft to palpation, not firm, nontender, no guarding and not rigid Skin General skin exam: elasticity normal Neuro General: patient oriented x3 Cranial nerves: Yes Equal, round and reactive pupils present and No Normal hearing present Cognition (Neuro): normal cognition Speech: No Abnormal speech present Extrem Other: Moving all extremities well without any obvious deformities Course Course Course Narrative: This is a Rapid Medical Examination (RME) performed by Adelina Conley PA-C in triage. Full HPI, ROS, assessment and treatment plan per primary provider in the Main ED. 78 yo female hx of stage 4 CKD, anemia, and HTN here w/ family members for evaluation of multiple concerns. Family member reports patient cannot walk. Patient states it's because my feet hurt . also reports decreased appetite, increased weakness, and SOB. family states patient lays in bed all day. Reports symptoms have been present for months. Has not followed up with doctor out patient. Next appointment in June. denies chest pain. + frail appearing female Plan: basic labs, UA, chest xr Reevaluation(s) Reevaluation #1: Given the patient's leg weakness, discussed possible case management with physical therapy evaluation and consideration for short-term rehab. I discussed with the patient and her daughters at bedside. They distal amongst themselves and would prefer to take the patient home. Again, the patient lives with her 2 daughters and and has good support at home. Time: 23:29 Medical Decision Making Medical Decision Making MDM Narrative: 78-year-old female with past medical history as documented above presents for evaluation of multiple complaints including shortness of breath with exertion. She has no chest pain. Her EKG is nonischemic and unchanged from almost 6 years ago. Her chest x-ray shows small pleural effusions and no evidence of cardiomegaly. The patient's BNP is elevated to 326. She appears to have mild congestive heart failure developing. She has no lower extremity edema or risk factors for DVT/PE. The patient has chronic kidney disease which appears unchanged and actually slightly better than her baseline. Chest x-ray shows a questionable infiltrate in the lower lobes, but she has been short of breath for 6 months in his not had any coughing. She has no fevers in a leukocytosis, so I doubt pneumonia/infectious process. Considered admission for echocardiogram however the patient has a mild, she is not hypoxic. The patient prefers to go home and follow up as an outpatient with Cardiology. We will give her a 1 time dose of Lasix 40 mg and discharge her with a week's worth of Lasix 20 mg. Any further refills if necessary can be done by her PCP or Cardiology. The patient was found to have to compression deformities of T9 and T12 respectively. This was discussed with the family. Differential Diagnosis Differential Diagnoses: The differential diagnosis associated with the presentation includes Congestive heart failure Dyspnea on exertion Bronchitis Pneumonia COVID-19 Admission/Observation Consideration of admission/observation: Escalation of care including admission/observation considered Lab Data MDM Lab Attestation statement: I reviewed the patient's lab results. No leukocytosis. The patient does have a mild macrocytic anemia. Patient's chemistries are significant for mild abnormalities of a elevated chloride to 109, carbon dioxide to 20, baseline elevation of creatinine of 1.51. Glucose of 193 which the patient takes metformin for. Mild elevation of BNP, undetectable troponin. 05/28/24 19:44 05/28/24 19:44 Labs: Lab Results 05/28/24 05/28/24 Range/Units 19:44 22:45 WBC 6.1 (4.8-10.8) X10*3/uL RBC 3.15 L (4.20-5.50) X10*6/uL Hgb 10.6 L (12.0-16.0) g/dl Hct 31.6 L (37.0-47.0) % MCV 100.3 H (80.0-98.0) fL MCH 33.7 H (27.0-33.0) pg MCHC 33.5 (31.0-35.0) g/dl RDW 16.4 H (11.0-16.0) % Plt Count 149 L D (160-400) X10*3/uL MPV 9.6 (9.4-12.3) fL Immature Gran % (Auto) 0.3 (0.0-0.4) % Neut % (Auto) 61.0 (45-73) % Lymph % (Auto) 18.0 L (20-40) % [place] % (Auto) 17.9 H (2-11) % Eos % (Auto) 2.3 (0-4) % Baso % (Auto) 0.5 (0-2) % Lymph # (Auto) 1.1 L (1.2-4.9) X10*3/uL [place] # (Auto) 1.1 (0.1-1.2) X10*3/uL Eos # (Auto) 0.1 (0.0-0.4) X10*3/uL Baso # (Auto) 0.0 (0.0-0.2) X10*3/uL Abs Immat Gran (auto) 0.02 (0.00-0.03) X10*3/uL Absolute Neuts (auto) 3.7 (2.0-8.3) x10*3/uL Absolute Nucleated RBC 0.000 (0.0-0.012) X10*3/uL Nucleated RBC % (auto) 0.0 (0.0-0.2) /100WBC Sodium 137 (135-145) mmol/L Potassium 4.3 (3.3-5.1) mmol/L Chloride 109 H (96-108) mmol/L Carbon Dioxide 20 L (22-29) mmol/L Anion Gap 12 (12-20) BUN 10 (9-16) mg/dL Creatinine 1.51 H (0.5-1.4) mg/dL Estim Creat Clear Calc 23.1 Estimated GFR 33 Random Glucose 193 H (60-115) mg/dL Calcium 8.5 D (8.4-10.2) mg/dL Magnesium 2.1 (1.6-2.6) mg/dL Total Bilirubin 1.2 H (0.0-1.0) mg/dL AST 42 H (5-31) U/L ALT 22 (0-31) U/L Alkaline Phosphatase 111 (39-117) U/L Troponin I High Sens < 2.7 (<3.5-17.0) ng/L B-Natriuretic Peptide 326 H (<100) pg/mL Total Protein 6.8 (6.5-8.0) g/dL Albumin 2.3 L (3.5-5.0) g/dL Lipase 20 (8-78) U/L Independent Interpretation I performed an independent interpretation of an: EKG and Plain X-Ray (Small pleural effusions, agree with Radiology) Radiology Impression Discussion of test interpretation with radiology: I have reviewed the radiologist's reading. Radiologist Impression: XR/XR chest 2V IMPRESSION: 1. There is a small patchy infiltrate in the lateral mid right lung. 2. There are very small bilateral pleural effusions. 3. A moderate hiatus hernia seen. 3. There is a mild T9 wedge compression fracture, and a marked T12 compression fracture is seen. Discharge Plan Discharge Clinical Impression: Small pleural effusion, Bilateral leg weakness, Compression fracture of thoracic spine, non-traumatic Patient Disposition: Home, Self-Care Instructions: Heart Failure (ED), Vertebral Compression Fracture (ED) Additional Instructions: Your blood work showed chronic kidney disease that is unchanged from your baseline. Your chest x-ray shows a small amount of fluid in your lungs which is likely contributing to your shortness of breath. The x-ray also showed compression fractures of T9 and T12 which is likely contributing to your back pain I recommend that you follow-up with cardiology the number provided. You would likely benefit from an outpatient echocardiogram. In the meantime, take Lasix 20 mg daily for the next week Return for new or worsening symptoms Prescriptions: New furosemide [Lasix] 20 mg tablet 20 mg PO DAILY Qty: 7 0RF No Action amlodipine 5 mg tablet 5 mg PO DAILY Qty: 90 3RF ergocalciferol (vitamin D2) 1,250 mcg (50,000 unit) capsule 1,250 mcg PO QWEEK 90 Days Qty: 13 3RF glipizide 2.5 mg tablet extended release 24hr 2.5 mg PO DAILY Qty: 90 3RF Referrals: Melvin Valentine MD [Physician] - (mild new CHF. ? echo) Print Language: Setswana
[2024-05-28 19:54] LABS: MANUAL DIFF FLAG NO
[2024-05-28 19:56] LABS: Basophils Percent Auto 0.5 % (0-2); Eosinophils Absolute Auto 0.1 X10*3/uL (0.0-0.4); Eosinophils Percent Auto 2.3 % (0-4); Hematocrit 31.6 % (37.0-47.0); Hemoglobin 10.6 g/dl (12.0-16.0); Imm Gran Abs Auto 0.02 X10*3/uL (0.00-0.03); Imm Gran Pct Auto 0.3 % (0.0-0.4); Lymphocytes Absolute Auto 1.1 X10*3/uL (1.2-4.9); Mean Corpuscular HGB Conc 33.5 g/dl (31.0-35.0); Mean Corpuscular Hemoglobin 33.7 pg (27.0-33.0); Mean Corpuscular Volume 100.3 fL (80.0-98.0); Mean Platelet Volume 9.6 fL (9.4-12.3); Monocytes Absolute Auto 1.1 X10*3/uL (0.1-1.2); Monocytes Percent Auto 17.9 % (2-11); Neutrophils Absolute Auto 3.7 x10*3/uL (2.0-8.3); Platelet Count 149 X10*3/uL (160-400); Red Blood Count 3.15 X10*6/uL (4.20-5.50); Red Cell Distribution Width 16.4 % (11.0-16.0); White Blood Count 6.1 X10*3/uL (4.8-10.8)
[2024-05-28 20:20] LABS: Alanine Aminotransferase 22 U/L (0-31); Albumin Level 2.3 g/dL (3.5-5.0); Alkaline Phosphatase 111 U/L (39-117); Anion Gap 12 (12-20); Aspartate Amino Transferase 42 U/L (5-31); Bilirubin Total 1.2 mg/dL (0.0-1.0); Blood Urea Nitrogen 10 mg/dL (9-16); Calcium 8.5 mg/dL (8.4-10.2); Carbon Dioxide 20 mmol/L (22-29); Chloride 109 mmol/L (96-108); Creatinine Clr Calc Pharmacy 23.1; Estimated Glomerular Filt Rate 33; Glucose Random 193 mg/dL (60-115); Lipase 20 U/L (8-78); Magnesium 2.1 mg/dL (1.6-2.6); Potassium 4.3 mmol/L (3.3-5.1); Sodium 137 mmol/L (135-145); Total Protein 6.8 g/dL (6.5-8.0)
[2024-05-28 20:23] VITALS: O2SAT 100
[2024-05-28 20:24] LABS: B Type Natriuretic Peptide 326 pg/mL (<100)
[2024-05-28 20:28] VITALS: BP 125/67; PULSE 74; RESP 16; TEMP 36.6; O2SAT 98
--- NOTE | 2024-05-28 22:07 | ECG_ITS ---
Test Reason : failure to trive Blood Pressure : / mmHG Vent. Rate : 076 BPM Atrial Rate : 076 BPM P-R Int : 152 ms QRS Dur : 086 ms QT Int : 404 ms P-R-T Axes : 011 -03 -09 degrees QTc Int : 454 ms Normal sinus rhythm Cannot rule out Anterior infarct , age undetermined Nonspecific T wave abnormality Abnormal ECG When compared with ECG of 15-NOV-2017 21:04, Nonspecific T wave abnormality, worse in Inferior leads Referred By: Lv Ybarra Electronically Signed By:ELVIS HARTMANN
[2024-05-28 22:36] VITALS: BP 144/77; PULSE 75; RESP 18; TEMP 36.8; O2SAT 94
--- NOTE | 2024-05-28 22:47 | MHC.EDTECH ---
Patient ekg taken and was read by Provider ,repeated trop drawn and sent to lab .
--- NOTE | 2024-05-28 23:01 | PC.NURSE ---
Patient resting on stretcher at this time speaking w/ provider Kermit, decision to stay vs. OP being discussed, Kermit to speak w/ admitting provider regarding possible admission.
[2024-05-28 23:16] LABS: Troponin-I High Sensitivity < 2.7 ng/L (<3.5-17.0)
--- NOTE | 2024-05-28 23:18 | PC.NURSE ---
Took over care from SUBHA Gregory, pt resting in bed with family at the bedside.
[2024-05-28 23:27] VITALS: BP 144/71
[2024-05-28] MEDS: Furosemide 40 MG TABLET PO (23:27)
--- NOTE | 2024-05-28 23:29 | PC.NURSE ---
medicated per Mar
[2024-05-28 23:56] VITALS: BP 159/80; PULSE 76; RESP 16; TEMP 36.4; O2SAT 97
--- NOTE | 2024-05-29 00:05 | PC.NURSE ---
pt assisted to bedside commode, pt dress and discharge by wheel chair, reviewed instruction with pt and family. pt and family verbalized understanding.
[2024-05-29 00:07] VITALS: BP 159/80; PULSE 76; RESP 16; TEMP 36.4; O2SAT 99
== END 2024-05-29 00:08 | disposition home or self-care (01) ==
PROVIDERS: Physician Assistant; Physician Assistant Medical; Emergency Provider Emergency Medicine Emergency Medical Services; PCP Internal Medicine
DX: J90 Pleural effusion, not elsewhere classified (principal); M48.54XA Collapsed vertebra, not elsewhere classified, thoracic region, initial encounter for fracture; R53.1 Weakness; R06.02 Shortness of breath; E11.22 Type 2 diabetes mellitus with diabetic chronic kidney disease; I12.9 Hypertensive chronic kidney disease with stage 1 through stage 4 chronic kidney disease, or unspecified chronic kidney disease; N18.4 Chronic kidney disease, stage 4 (severe); E78.00 Pure hypercholesterolemia, unspecified; Z87.891 Personal history of nicotine dependence; Z79.899 Other long term (current) drug therapy
CPT/HCPCS: 36415; 71046; 80053; 83690; 83735; 83880; 84484; 85025; 93005; 99283; 99285

== ENCOUNTER 2024-07-14 04:04 | Emergency (ER) | payer MEDICARE, SELFPAY ==
[2024-07-14] VITALS (11 sets, daily range): BP systolic 98–128; BP diastolic 50–104; PULSE 67–109; RESP 14–30; TEMP 33.5–35.1; O2SAT 98–100; BMI 17.4
--- NOTE | ~2024-07-14 | CT_ITS ---
EXAMINATION: CT CHEST, ABDOMEN, AND PELVIS WITHOUT CONTRAST CLINICAL INFORMATION: Sepsis. Question pneumonia. Question abdominal infection. COMPARISON: No prior chest CT. CT scans of the abdomen and pelvis dated May 30, 2013. TECHNIQUE: Multidetector volumetric CT imaging of the chest, abdomen, and pelvis was obtained without oral or intravenous contrast. Axial MIP volume rendering provided. Sagittal and coronal reformatted images were obtained. This CT examination was performed using dose optimization techniques as appropriate, variously including the following: *Automated exposure control *Adjustment of mA and/or kV according to patient size (this includes techniques or standardized protocols for targeted exams where dose is matched to indication/reason for exam; i.e. extremities or head) *Use of iterative reconstruction technique DLP: 492 mGy-cm FINDINGS: Very limited by motion as well as by lack of oral and intravenous contrast. LUNGS/PLEURA: Small bilateral pleural effusions with associated atelectasis. Mild chronic interstitial fibrotic changes with a peripheral and basilar predominance. No focal infiltrate or suspicious nodule identified. No pneumothorax. MEDIASTINUM: Heart normal in size. No pericardial effusion. No evidence of adenopathy by size criteria. CORONARY ARTERY CALCIFICATION: Moderate to severe. AXILLA: No lymphadenopathy by size criteria. LIVER, GALLBLADDER, AND BILIARY TREE: Fatty infiltration of the liver. No focal hepatic lesion or biliary ductal dilatation is appreciated on this limited study. Status post cholecystectomy. PANCREAS: Unremarkable SPLEEN: Unremarkable ADRENAL GLANDS: Unremarkable KIDNEYS AND URETERS: Mild to moderate bilateral renal cortical atrophy. 0.8 cm or less, bilateral, nonobstructing renal collecting system stones and/or vascular calcifications, left worse than right. BLADDER: Decompressed by a Cassidy catheter, therefore suboptimally evaluated. Grossly unremarkable. GASTROINTESTINAL TRACT: Moderate to large hiatus hernia. Fluid within the esophagus. Abnormal concentric thickening of the wall the esophagus. Significantly limited evaluation of the small bowel. Cannot entirely exclude long segment, concentric thickening involving the duodenum and jejunum, with relative sparing of the distal ileum. Diverticulosis predominantly involving the sigmoid and descending colon, without evidence of diverticulitis. Unremarkable appearance of the distal ileum. No obvious evidence of appendicitis. PERITONEAL CAVITY: Moderate ascites. No free air identified. ABDOMINAL WALL: No significant hernia is appreciated. LYMPH NODES: No evidence of adenopathy by size criteria. VASCULAR: Extensive arterial calcific atherosclerosis. Tip of right femoral venous line lies in the distal aspect of the right common femoral vein. PELVIC VISCERA: Suspect approximately 2 cm, calcified, degenerated uterine leiomyoma. OSSEOUS STRUCTURES: Decreased bone mineral density. Severe compression deformity of T12. Moderate compression deformity of T9. Mild compression deformity of L3. These were not identified on CT scan from May 30, 2013. Moderate disc space narrowing at L5-S1. CT/CT abdomen pelvis wo IV con IMPRESSION: Very limited study. Moderate to large hiatus hernia. Fluid within the esophagus, suggesting an element of reflux and/or dysmotility. Abnormal concentric thickening of the wall the esophagus, raising the possibility of esophagitis. Significantly limited evaluation of the small bowel. Cannot entirely exclude nonspecific, long segment, concentric thickening involving the duodenum and jejunum, with relative sparing of the distal ileum. Enteritis cannot be excluded. Moderate ascites. Small bilateral pleural effusions with associated atelectasis. Decreased bone mineral density. Severe compression deformity of T12. Moderate compression deformity of T9. Mild compression deformity of L3. These were not identified on CT scan from May 30, 2013. Recommend clinical correlation. Calcific atherosclerosis. Multiple additional findings as above. Electronically signed by: Joshua Traore MD 07/14/2024 01:57 PM EDT
--- NOTE | ~2024-07-14 | CT_ITS ---
EXAMINATION: CT HEAD WITHOUT CONTRAST CLINICAL INFORMATION: Mental status change COMPARISON: None available. TECHNIQUE: Contiguous axial imaging was performed from the skull base to vertex without intravenous administration of contrast. This CT examination was performed using dose optimization techniques as appropriate, variously including the following: *Automated exposure control *Adjustment of mA and/or kV according to patient size (this includes techniques or standardized protocols for targeted exams where dose is matched to indication/reason for exam; i.e. extremities or head) *Use of iterative reconstruction technique DLP: 584 mGy-cm FINDINGS: There is prominence to the sulci and ventricles with moderate deep white matter gliosis observed however, no evidence of intra or extra-axial fluid collection or hemorrhage, mass, or mass effect. The calvarium is intact. Extensive atherosclerotic calcification is seen within the right and left carotid siphons. There is extensive mucoperiosteal thickening filling the frontal, and anterior ethmoid sinuses as well as the right maxillary sinus. CT/CT head/brain wo IV con IMPRESSION: Chronic sinus disease. Extensive involutional change observed. No hemorrhage or acute intracranial abnormality. Electronically signed by: Nathan Mason MD 07/14/2024 10:52 AM EDT
--- NOTE | ~2024-07-14 | XR_ITS ---
EXAMINATION: XR CHEST CLINICAL INFORMATION: Elevated white blood cell count. Hypothermia. COMPARISON: May 28, 2024 TECHNIQUE: Frontal view of the chest was obtained. FINDINGS: The cardiomediastinal silhouette is stable. There is no focal lung consolidation or evidence for significant pleural effusions. A moderate to large hiatal hernia is again seen. The bony structures are osteopenic. Soft tissues are unremarkable. XR/XR chest 1V IMPRESSION: 1. No acute cardiopulmonary process. 2. Moderate to large hiatal hernia. Electronically signed by: Shahbaz Herrera MD 07/14/2024 06:24 AM EDT
--- NOTE | 2024-07-14 04:07 | ECG_ITS ---
Test Reason : GI BLEED Blood Pressure : / mmHG Vent. Rate : 106 BPM Atrial Rate : 106 BPM P-R Int : 130 ms QRS Dur : 076 ms QT Int : 360 ms P-R-T Axes : 041 023 223 degrees QTc Int : 478 ms Artifact in tracing Sinus tachycardia with occasional Premature ventricular complexes Nonspecific T wave abnormality Abnormal ECG When compared with ECG of 28-MAY-2024 22:26, Premature ventricular complexes are now Present Referred By: Serjio Barajas Electronically Signed By:DEDE CAVAZOS
[2024-07-14 04:27] LABS: Glucose, Whole Blood 215 mg/dL (60-115)
[2024-07-14 04:42] LABS: Basophils Percent Auto 0.1 % (0-2); Hematocrit 24.6 % (37.0-47.0); Hemoglobin 8.1 g/dl (12.0-16.0); Imm Gran Pct Auto 0.7 % (0.0-0.4); Lymphocytes Absolute Auto 1.7 X10*3/uL (1.2-4.9); Lymphocytes Percent Auto 6.3 % (20-40); MANUAL DIFF FLAG SCAN; Mean Corpuscular HGB Conc 32.9 g/dl (31.0-35.0); Mean Corpuscular Hemoglobin 32.7 pg (27.0-33.0); Mean Corpuscular Volume 99.2 fL (80.0-98.0); Mean Platelet Volume 10.5 fL (9.4-12.3); Monocytes Absolute Auto 1.4 X10*3/uL (0.1-1.2); Monocytes Percent Auto 5.3 % (2-11); Neutrophils Absolute Auto 23.4 x10*3/uL (2.0-8.3); Neutrophils Percent Auto 87.6 % (45-73); Platelet Count 168 X10*3/uL (160-400); Red Blood Count 2.48 X10*6/uL (4.20-5.50); SCAN SMEAR FLAG 1; White Blood Count 26.8 X10*3/uL (4.8-10.8)
[2024-07-14] MEDS: 0.9 % Sodium Chloride 1,000 ML 200 ML IVCONT (04:43)
[2024-07-14] MEDS: Pantoprazole Sodium 40 MG/10 ML VIAL IVPUSH (04:44)
[2024-07-14 04:48] LABS: Ammonia 73 umol/L (13-55)
[2024-07-14 04:56] LABS: Appearance Urine Cloudy; Color Urine Dark Yellow; Glucose Urine UA Negative (Negative); Leukocyte Esterase Urine Moderate (2+) (Negative); Nitrite Urine Negative (Negative); UMIC TRIGGER UACC YES; Urine Blood Trace (Negative); Urine Ketones Trace mg/dL (Negative); Urine Protein Trace mg/dL (Neg-Trace)
[2024-07-14 05:03] LABS: Troponin-I High Sensitivity 7.5 ng/L (<3.5-17.0)
[2024-07-14 05:05] LABS: SLIDE REVIEW VERIFIED
[2024-07-14 05:05] LABS: Amphetamine Screen Urine Not Detected (Not Detect); Barbiturates, Urine Not Detected (Not Detect); Benzodiazepines Screen Urine Not Detected (Not Detect); Buprenorphine Scr Not Detected (Not Detect); Cannabinoid Screen Urine POSITIVE (Not Detect); Cocaine Screen Urine Not Detected (Not Detect); Fentanyl, urine Not Detected (Not Detect); Methadone Screen, Urine Not Detected (Not Detect); Opiate Screen Urine Not Detected (Not Detect); Oxycodone Screen Urine Not Detected (Not Detect); Phencyclidine Screen Urine Not Detected (Not Detect)
[2024-07-14 05:17] LABS: Alanine Aminotransferase 34 U/L (0-31); Albumin Level 1.8 g/dL (3.5-5.0); Alkaline Phosphatase 128 U/L (39-117); Anion Gap 30 (12-20); Aspartate Amino Transferase 45 U/L (5-31); Bilirubin Total 2.3 mg/dL (0.0-1.0); Blood Urea Nitrogen 31 mg/dL (9-16); Calcium 8.7 mg/dL (8.4-10.2); Carbon Dioxide 10 mmol/L (22-29); Chloride 112 mmol/L (96-108); Creatinine Clr Calc Pharmacy 13.6; Estimated Glomerular Filt Rate 20; Glucose Random 237 mg/dL (60-115); Potassium 4.2 mmol/L (3.3-5.1); Sodium 148 mmol/L (135-145); Total Protein 6.3 g/dL (6.5-8.0)
[2024-07-14 05:26] LABS: Bacteria Urine 1+ (None Seen); Granular Casts Urine Present; Hyaline Casts Urine >20 /LPF (0-2); RBC Urine 0-2 /HPF (0-2); UACC Culture Trigger YES
--- NOTE | 2024-07-14 05:29 | PC.NURSE ---
verbal consent obtained from daughter, Charisma Glasgow by this RN witnessed by SUBHA Rojas.
[2024-07-14 05:34] LABS: Ethanol < 10 mg/dL
--- NOTE | 2024-07-14 06:08 | ED_ITS ---
HPI - Nausea/Vomiting/Diarrhea General Chief complaint: Nausea/Vomiting/Diarrhea Stated complaint: VOMITING/ LETHARGIC/ FAMILY STATES ALTERED Time Seen by Provider: 07/14/24 04:05 Source: family and EMS Mode of arrival: EMS Limitations: altered mental status History of Present Illness ED Provider: Dr. Barajas HPI Narrative: Patient is a frail 78yo female with DM and chronic kidney disease who presents with vomiting coffee grounds, dark diarrhea and confusion. Family mostly concerned about her congestive heart failure. MD elicited complaint: nausea, vomiting and diarrhea Related Data Previous Rx's ?Medication ?Instructions ?Recorded amlodipine 5 mg tablet 5 mg PO DAILY #90 tabs 10/01/23 ergocalciferol (vitamin D2) 1,250 1,250 mcg PO QWEEK 90 days #13 caps 10/01/23 mcg (50,000 unit) capsule glipizide 2.5 mg tablet, extended 2.5 mg PO DAILY #90 tabs 03/31/24 release 24 hr furosemide 20 mg tablet (Lasix) 20 mg PO DAILY #7 tabs 05/28/24 Allergies Allergy/AdvReac Type Severity Reaction Status Date / Time Sulfa (Sulfonamide Allergy Unknown Unknown Verified 07/14/24 04:22 Antibiotics) Review of Systems 2 Review of Systems: Yes Unobtainable due to mental status Neurologic: Denies Sensory deficit (Neuro) PMFSH Past Medical History Medical History Bilateral leg weakness Hyperkalemia Psoriasis Chronic kidney disease, stage 4 (severe) Anemia Pure hypercholesterolemia Benign essential hypertension Diabetes mellitus Vitamin D deficiency Surgical History S/P peripheral artery angioplasty with stent placement (~11/21/17) Social History Social History Housing: House Unable to assess alcohol history related to: Unable to respond Alcohol intake: former Patient Tobacco Use Status: Former Tobacco user Smoked in Last 30 Days: No Second Hand Smoke Exposure: Yes Use of substances other than those prescribed or required for medical reasons: Unable to respond Advance Directives: No service: No Current occupational status: retired and disabled Cognitive needs: No Hearing needs: No Vision needs: No Physical Exam 2 Vital Signs: Vital Signs: Last Vital Signs Temp 93.2 F L 07/14/24 06:19 Pulse 106 H 07/14/24 06:19 Resp 27 H 07/14/24 06:19 BP 98/65 07/14/24 06:19 Pulse Ox 98 07/14/24 04:11 O2 Del Method Room Air 07/14/24 04:11 BMI result Body Mass Index 17.4 Const: Other: frail elderly, confused, with vomit and stool over her body Orientation/consciousness: oriented to person Limitations: altered mental status HEENT: Head: Yes normal to inspection Ears: external ears normal General nose exam: Normal external nose present Mouth: Normal oral and palatal mucosa present and oropharynx normal Throat: Yes posterior oropharynx normal Eyes: Other: conjunctiva severely pale Neck: Other: supple Neck: Yes normal visual inspection Chest: Chest palpation & inspection: normal inspection of the chest Resp: Auscultation: clear to auscultation bilaterally Cardio: Jugular venous distension: no JVD Rate: regular rate Rhythm: r egular rhythm Heart sounds: S1 normal heart sound present and S2 normal heart sound present GI: Inspection: Yes normal to inspection Palpation (GI): Soft to palpation, nontender and No hepatosplenomegaly present Auscultation: normal bowel sounds : Other: black stool strong heme positive General: Yes no CVA tenderness Back/Spine/Pelvis: Back: no CVA tenderness Skin: Other: ecchymosis over her arms, severe pallor Neuro: General: oriented to person Cranial nerves: Yes CN's II-XII intact bilaterally Motor exam (neuro): 5/5 motor strength present throughout S ensory Exam: No Sensory deficit (Neuro) Extrem: General: Yes normal to inspection Psych: Other: confused Course Reevaluation(s) Reevaluation #1: I spent 60 minutes of critical care, with interventions, assessments, speaking to patient, consultants, and family. Patient with likely GI bleed with black stool strong heme positive. In addition patient with hypothermia, elevated WBC, and UTI. Patient making SIRS criteria but is normal tensive. Lastly blood transfusion started Time: 06:14 Reevaluation #2: Patient dropped her pressure momentarilarily but it is back up. I am concerned about givinig too much fluid as she has a history of congestive heart failure according to family. Time: 06:51 Medications Administered Generic Name Dose Route Start Last Admin Trade Name Freq PRN Reason Stop Dose Admin Sodium Chloride 1,000 mls @ 200 mls/hr 07/14/24 04:30 07/14/24 04:43 Ns IVCONT 07/14/24 09:29 200 mls/hr .Q5H ALISHA Administration Discontinued Medications Generic Name Dose Route Start Last Admin Trade Name Freq PRN Reason Stop Dose Admin Pantoprazole Sodium 40 mg 07/14/24 04:15 07/14/24 04:44 Pantoprazole Sodium 40 Mg/10 Ml Vial IVPUSH 07/14/24 04:16 40 mg ONCE ONE Administration Medical Decision Making Differential Diagnosis Differential Diagnoses: The differential diagnosis associated with the presentation includes (sepsis, UTI, pneumonia, GI bleed, acidosis) Admission/Observation Consideration of admission/observation: Escalation of care including admission/observation considered (upon arrival patient considered for admission) Consult Healthcare Provider Management of the patient was discussed with: Hospitalist Lab Data 07/14/24 04:32 07/14/24 04:32 Labs: Lab Results 07/14/24 07/14/24 07/14/24 Range/Units 04:23 04:32 04:48 WBC 26.8 H (4.8-10.8) X10*3/uL RBC 2.48 L D (4.20-5.50) X10*6/uL Hgb 8.1 L D (12.0-16.0) g/dl Hct 24.6 L D (37.0-47.0) % MCV 99.2 H (80.0-98.0) fL MCH 32.7 (27.0-33.0) pg MCHC 32.9 (31.0-35.0) g/dl RDW 18.0 H (11.0-16.0) % Plt Count 168 (160-400) X10*3/uL MPV 10.5 (9.4-12.3) fL Immature Gran % (Auto) 0.7 H (0.0-0.4) % Neut % (Auto) 87.6 H (45-73) % Lymph % (Auto) 6.3 L (20-40) % [place] % (Auto) 5.3 (2-11) % Eos % (Auto) 0.0 (0-4) % Baso % (Auto) 0.1 (0-2) % Lymph # (Auto) 1.7 (1.2-4.9) X10*3/uL [place] # (Auto) 1.4 H (0.1-1.2) X10*3/uL Eos # (Auto) 0.0 (0.0-0.4) X10*3/uL Baso # (Auto) 0.0 (0.0-0.2) X10*3/uL Abs Immat Gran (auto) 0.20 H (0.00-0.03) X10*3/uL Absolute Neuts (auto) 23.4 H (2.0-8.3) x10*3/uL Absolute Nucleated RBC 0.000 (0.0-0.012) X10*3/uL Nucleated RBC % (auto) 0.0 (0.0-0.2) /100WBC Smear Tech's Comments VERIFIED Sodium 148 H (135-145) mmol/L Potassium 4.2 (3.3-5.1) mmol/L Chloride 112 H (96-108) mmol/L Carbon Dioxide 10 L* D (22-29) mmol/L Anion Gap 30 H (12-20) BUN 31 H (9-16) mg/dL Creatinine 2.36 H (0.5-1.4) mg/dL Estim Creat Clear Calc 13.6 Estimated GFR 20 POC Glucose 215 H (60-115) mg/dL Random Glucose 237 H (60-115) mg/dL Calcium 8.7 (8.4-10.2) mg/dL Total Bilirubin 2.3 H (0.0-1.0) mg/dL AST 45 H (5-31) U/L ALT 34 H (0-31) U/L Alkaline Phosphatase 128 H (39-117) U/L Ammonia 73 H (13-55) umol/L Troponin I High Sens 7.5 D (<3.5-17.0) ng/L Total Protein 6.3 L (6.5-8.0) g/dL Albumin 1.8 L (3.5-5.0) g/dL Urine Color Dark Yellow Urine Appearance Cloudy Urine pH 5.0 (5.0-9.0) Ur Specific [place] 1.020 (1.005-1.025) Urine Protein Trace (Neg-Trace) mg/dL Urine Glucose (UA) Negative (Negative) mg/dL Urine Ketones Trace (Negative) mg/dL Urine Blood Trace H (Negative) Urine Nitrite Negative (Negative) Ur Leukocyte Esterase Moderate (2+) H (Negative) Urine RBC 0-2 (0-2) /HPF Urine WBC 11-20 (0-5) /HPF Ur Squamous Epith Cells 6-10 (0-2) /HPF Urine Bacteria 1+ (None Seen) Hyaline Casts >20 (0-2) /LPF Granular Casts Present Urine Opiates Screen Not Detected (Not Detect) Ur Buprenorphine Scrn Not Detected (Not Detect) ng/mL Ur Oxycodone Screen Not Detected (Not Detect) ng/mL Urine Methadone Screen Not Detected (Not Detect) ng/mL Urine Fentanyl Screen Not Detected (Not Detect) Ur Barbiturates Screen Not Detected (Not Detect) Ur Phencyclidine Scrn Not Detected (Not Detect) Ur Amphetamines Screen Not Detected (Not Detect) U Benzodiazepines Scrn Not Detected (Not Detect) Urine Cocaine Screen Not Detected (Not Detect) U Marijuana (THC) Screen POSITIVE H (Not Detect) Ethyl Alcohol < 10 mg/dL Blood Type A Positive Antibody Screen NEGATIVE Crossmatch See Detail Independent Interpretation I performed an independent interpretation of an: EKG (sinus 100, no st or twave changes) and Plain X-Ray (CXR: no infiltrate) Independent Historian Clinical information obtained from an independent historian. History obtained from or confirmed by: EMS and Other (family) Chronic Conditions Patient?s care impacted by: Diabetes and Hypertension Social Determinants Patient?s care significantly limited by Social Determinants of Health including: Problems related to primary support group Discharge Plan Discharge Clinical Impression: Gastrointestinal hemorrhage, Acute renal failure, Acute UTI Patient Disposition: Admitted As Inpatient Print Language: Slovak
[2024-07-14 07:04] LABS: Lactic Acid 16.1 mmol/L (0.5-2.0)
[2024-07-14 07:07] LABS: INTERNATIONAL NORM RATIO 2.2 (0.9-1.1); Prothrombin Time 25.5 SEC (10.9-12.4)
[2024-07-14] MEDS: LORazepam 2 MG/ML VIAL 0.5 MG IVPUSH ×2 (07:32→12:40)
[2024-07-14 07:46] LABS: VBG Base Excess -15.8 mmol/L; VBG HCO3 8 mmol/L (22-26); VBG pCO2 17 mmHg; VBG pH 7.29 (7.32-7.43); VBG pO2 79 mmHg
[2024-07-14 07:51] LABS: Venous Blood Gas Refer to POC result
[2024-07-14] MEDS: cefTRIAXone sodium 1 GM VIAL IVPUSH (07:54)
[2024-07-14 07:56] LABS: ABG Base Excess -14.9 mmol/L; ABG HCO3 7 mmol/L (22-26); ABG pCO2 11 mmHg (32-45); ABG pO2 119 mmHg (83-108)
[2024-07-14] MEDS: 0.9 % Sodium Chloride 1,000 ML 999 ML IV (07:58)
[2024-07-14] MEDS: vancomycin HCL 1,000 MG in 0.9 % Sodium Chloride 250 ML 270 MG IV (08:12)
[2024-07-14] MEDS: 0.9 % Sodium Chloride 1,000 ML 999 ML IVCONT (08:20)
--- NOTE | 2024-07-14 08:31 | PC.NURSE ---
Late entry: This RN assumed care at 0700, pt restless, trying to get out of bed and pulling at wires. Central line placed by MD Drew at bedside, right femoral. Blood infusing at MAR. Pt medicated with ativan per MAR for restlessness, slight effect. Due to increased agitation and pulling at wires/ lines, verbal MD order to soft restraint for medical, placed and paperwork filled out. Sinus tach on mud analysis supervisor, BP remains stable. Pt has ulrich in place from previous RN, draining small amount of urine. Due to hypothermia, pt on bear hugger at this time. Airway patent, breathing tachpneic, skin pale.
[2024-07-14 08:40] LABS: Reflex Lactate? Lactic Acid Added
[2024-07-14] MEDS: Piperacillin Sodium/Tazobactam 3.375 GM in 0.9 % Sodium Chloride 50 ML IV (10:12)
[2024-07-14 10:16] LABS: OBS Int Ctl Valid YES; OBS1 POSITIVE (NEGATIVE)
[2024-07-14 10:17] LABS: Hematocrit 27.8 % (37.0-47.0); Hemoglobin 9.4 g/dl (12.0-16.0); Mean Corpuscular HGB Conc 33.8 g/dl (31.0-35.0); Mean Corpuscular Hemoglobin 31.5 pg (27.0-33.0); Mean Corpuscular Volume 93.3 fL (80.0-98.0); Mean Platelet Volume 10.6 fL (9.4-12.3); Platelet Count 103 X10*3/uL (160-400); Red Blood Count 2.98 X10*6/uL (4.20-5.50); Red Cell Distribution Width 16.7 % (11.0-16.0)
[2024-07-14 10:18] LABS: WBC ABN SCTR FOR CBC 1; White Blood Count 23.5 X10*3/uL (4.8-10.8)
--- NOTE | 2024-07-14 10:22 | PC.NURSE ---
REPORT CALLED TO RN INVASIVE AT [facility]
[2024-07-14 10:33] LABS: Anion Gap 22 (12-20); Blood Urea Nitrogen 29 mg/dL (9-16); Calcium 7.2 mg/dL (8.4-10.2); Carbon Dioxide 10 mmol/L (22-29); Chloride 119 mmol/L (96-108); Creatinine Clr Calc Pharmacy 16.5; Estimated Glomerular Filt Rate 25; Glucose Random 199 mg/dL (60-115); Potassium 4.1 mmol/L (3.3-5.1); Sodium 147 mmol/L (135-145)
[2024-07-14 10:34] LABS: ~Lactic Acid-LAB USE ONLY 10.7 mmol/L (0.5-2.0)
[2024-07-14 10:43] LABS: Band Neutrophils Percent 6 % (3-5); Lymphocytes Absolute Manual 0.2 X10*3/uL (1.2-4.9); Lymphocytes Percent Manual 1 % (20-40); Monocytes Absolute Manual 0.2 X10*3/uL (0.1-1.2); Monocytes Percent Manual 1 % (2-11); Neutrophils Percent Manual 92 % (45-73)
[2024-07-14 10:48] LABS: RBC Morphology NOTED
[2024-07-14 10:50] LABS: Acanthocytes 3+ (>5) /OIF; Burr Cells 2+ (3-5) /OIF; Hypersegmented Neutrophils PRESENT; Schistocytes 1+ (0-2) /OIF; Toxic Vacuolation PRESENT
[2024-07-14 10:51] LABS: Platelet Estimate DECREASED (NORMAL); Platelet Morphology Comment NORMAL
[2024-07-14 10:58] LABS: ABG Refer to POC result
[2024-07-14 12:13] LABS: Reflex Lactate? 2 Y
--- NOTE | 2024-07-14 12:36 | PC.NURSE ---
report given to CHASIDY ramos at this time. pt being transported to [facility] at this time.
== END 2024-07-14 12:40 | disposition short-term general hospital (02) ==
PROVIDERS: Emergency Medicine; Emergency Provider Emergency Medicine; PCP Internal Medicine
DX: K92.2 Gastrointestinal hemorrhage, unspecified (principal); N17.9 Acute kidney failure, unspecified; N39.0 Urinary tract infection, site not specified; R68.0 Hypothermia, not associated with low environmental temperature; R11.10 Vomiting, unspecified; E11.22 Type 2 diabetes mellitus with diabetic chronic kidney disease; I13.0 Hypertensive heart and chronic kidney disease with heart failure and stage 1 through stage 4 chronic kidney disease, or unspecified chronic kidney disease; N18.4 Chronic kidney disease, stage 4 (severe); I50.9 Heart failure, unspecified; E78.00 Pure hypercholesterolemia, unspecified; F12.90 Cannabis use, unspecified, uncomplicated; Z87.891 Personal history of nicotine dependence; Z79.899 Other long term (current) drug therapy
CPT/HCPCS: 36415; 36430; 36556; 51702; 70450; 71045; 71250; 74176; 80048; 80053; 80307; 81001; 81003; 82010; 82140; 82272; 82803; 82947; 83605; 84484; 85007; 85025; 85027; 85610; 86850; 86900; 86901; 86923; 87040; 87086; 93005; 96361; 96365; 96375; 96376; 99285; 99291; J0696; J2060; J2470; J2543; J3370; P9016